=== PATIENT | female | born 1980 | race African-American/Black ===

== ENCOUNTER 2016-07-05 11:12 | Emergency (ER) ==
[2016-07-05 11:28] VITALS: BP 123/56; TEMP 97.4; BMI 19.8
[2016-07-05] MEDS ORDERED: LIDOCAINE 1 % AMP 5 ML (SUTURES) SUBCUT STA (11:28)
[2016-07-05] MEDS ORDERED: BOOSTRIX IM ONE (11:41)
--- NOTE | 2016-07-05 11:41 | ED.PDOC ---
General ED Provider: Dr. ALANIS MORALES JR Chief Complaint: Puncture Wound Stated Complaint: TRYING TO MOVE CLOTHES ON WOODEN RODS AND GOT SPLINTER LEFT HAND 4TH DIGIT.[End]90 minutes 97.4 67 16 98% 123/56 5/10 SPLINTER 4TH DIGIT LEFT HAND 21 weeks per patient last tetanus in the - 2009? Time Seen by Physician: 12:04 Mode of Arrival: Walk-In Information Source: Patient Exam Limitations: No limitations Primary Care Provider: MARILYN PIERSON Nursing and Triage Documentation Reviewed and Agree: No Review of Systems - Review Of Systems Constitutional: Reports: No symptoms Eyes: Reports: No symptoms Ears, Nose, Mouth, Throat: Reports: No symptoms Respiratory: Reports: No symptoms Cardiac: Reports: No symptoms GI: Reports: No symptoms : Reports: No symptoms Musculoskeletal: Reports: No symptoms Skin: Reports: Lesions Neurological: Reports: No symptoms Endocrine: Reports: No symptoms Hematologic/Lymphatic: Reports: No symptoms All Other Systems: Other Past Medical History - Past Medical History Endocrine: Reports: None Cardiovascular: Reports: None Respiratory: Reports: None Hematological: Reports: None Gastrointestinal: Reports: None Genitourinary: Reports: None Neuro/Psych: Reports: None Musculoskeletal: Reports: None Cancer: Reports: None Last Menstrual Period: 2015 Other Pertinent Past Medical History: 3 children delivered as early as 34 weeks "all early" - Surgical History General Surgical History: Reports: Cholecystectomy, Tonsillectomy - Family History Family History: Reports: Unknown - Social History Smoking Status: Former smoker Hx Substance Use: No Alcohol Screening: None Physical Exam - Physical Exam Appearance: Well-appearing, Thin Pain Distress: Mild Neck: Supple Respiratory: Airway patent Skin: Warm, Dry, Normal color (note lesion no nv defecit prior numb after lidocaine) Neurological: Sensation intact, Motor intact, Reflexes intact, Cranial nerves intact, Alert, Oriented Psychiatric: Affect appropriate, Mood appropriate Procedures - Foreign Body Removal Location of Foreign Object: left middle phalanx fourth digit volar surface Foreign Object: splinter wood of clothes luba Depth of Object: 3mm Type of Anesthesia: Local Medication Used: Yes: Lidocaine Prep: Betadine Irrigation: No Skin Incised: Yes Instruments Used: Yes: Forceps Foreign Body Identified and Removed: Yes Critical Care Note - Critical Care Note Total Time (mins): 0 Course - Course Orders, Labs, Meds: Orders Category Date Time Status Diphth,Pertuss(Acell),Tet Vac [Boostrix] MEDS 07/05/16 11:41 Discontinued 0.5 ml IM .ONCE ONE Lidocaine HCl/Pf [Lidocaine 1 % Amp 5 ml (Sutures)] MEDS 07/05/16 11:28 Discontinued 5 ml SUBCUT ONCE STA Medications Discontinued Medications Generic Name Dose Route Start Last Admin Trade Name Moy PRN Reason Stop Dose Admin Diphtheria/Pertussis/Tetanus Vacc 0.5 ml 07/05/16 11:41 Boostrix IM 07/05/16 11:42 .ONCE ONE Lidocaine HCl 5 ml 07/05/16 11:28 Lidocaine 1 % Amp 5 Ml (Sutures) SUBCUT 07/05/16 11:29 ONCE STA Vital Signs: Temp Pulse Resp BP Pulse Ox 07/05/16 11:17 97.4 F L 67 16 123/56 L 98 Departure - Departure Time of Disposition: 12:10 Disposition: HOME SELF-CARE Discharge Problem: Wound Instructions: Soft Tissue Foreign Body (ED) Condition: Good Pt referred to PMD for follow-up: Yes Additional Instructions: clean and dry for two days no bandage when dry change bandage every day and if drains through if bleeds through bandage three times return recheck if red swollen draining or painful begin antibiotic only if symptoms of infection recommend DTAP at 29-30 weeks(see below) Women should get adult tetanus, diphtheria and acellular pertussis vaccine (Tdap ) during each . Ideally, the vaccine should be given between 27 and 36 weeks of in order for pertussis (whooping cough) protection to be passed on to the unborn child[. https://www.vaccines.gov/who_and_when// index.html Prescriptions: Cephalexin [Keflex] 500 mg PO QID #28 capsule Allergies/Adverse Reactions: Allergies No Known Allergies Allergy (Verified 07/05/16 11:16) Home Medications: Ambulatory Orders Cephalexin [Keflex] 500 mg PO QID #28 capsule 07/05/16 Ondansetron HCl [Zofran Tab] 4 mg PO Q8H PRN 07/05/16 [id number]/Iron Fumarate/FA/Dss [ 19 Tablet] 1 each PO DAILY 07/05/16
== END 2016-07-05 12:25 | disposition home or self-care (01) ==
LOC: ED 11:12
DX: S60.455A Superficial foreign body of left ring finger, initial encounter (principal); W45.8XXA Other foreign body or object entering through skin, initial encounter; Z33.1 Pregnant state, incidental
CPT/HCPCS: 99282

== ENCOUNTER 2018-04-02 21:07 | Emergency (ER) ==
[2018-04-02 21:13] VITALS: TEMP 98.6; BMI 20.7
[2018-04-02] MEDS ORDERED: TORADOL IVP STA (21:22)
[2018-04-02] MEDS ORDERED: SODIUM CHLORIDE 1,000 ML IV STA (21:22)
--- NOTE | 2018-04-02 21:27 | ED.PDOC ---
General ED Provider: Dr. MADHAVI HERRERA MD Chief Complaint: Chest Pain Stated Complaint: abdominal pain radiating to right shoulder Time Seen by Physician: 21:20 Mode of Arrival: Walk-In Information Source: Patient Exam Limitations: No limitations Primary Care Provider: SIDNEY MCKEON Nursing and Triage Documentation Reviewed and Agree: Yes Does patient meet sepsis criteria?: No If yes, has appropriate treatment been initiated?: Yes System Inflammatory Response Syndrome: Not Applicable Sepsis Protocol: For patient's 13 years and over: Temp is 96.8 and below OR 101 and greater Pulse >90 BPM Resp >20/minute Acutely Altered Mental Status Are patient's symptoms suggestive of a new infection, such as: -Pneumonia -Skin, Soft Tissue -Endocarditis -UTI -Bone, Joint Infection -Implantable Device -Acute Abdominal Infection -Wound Infection -Meningitis -Blood Stream Catheter Infection -Unknown Review of Systems - Review Of Systems Constitutional: Reports: No symptoms Eyes: Reports: No symptoms Ears, Nose, Mouth, Throat: Reports: No symptoms Respiratory: Reports: No symptoms Cardiac: Reports: Chest pain (radiating to right shoulder) GI: Reports: Abdominal pain (RUQ) : Reports: No symptoms Musculoskeletal: Reports: No symptoms Skin: Reports: No symptoms Neurological: Reports: No symptoms Endocrine: Reports: No symptoms Hematologic/Lymphatic: Reports: No symptoms All Other Systems: Reviewed and Negative Past Medical History - Past Medical History Previously Healthy: Yes Endocrine: Reports: None Cardiovascular: Reports: None Respiratory: Reports: None Hematological: Reports: None Gastrointestinal: Reports: None Genitourinary: Reports: None Neuro/Psych: Reports: None Musculoskeletal: Reports: None Cancer: Reports: None Last Menstrual Period: 03/01/18 Other Pertinent Past Medical History: 3 children delivered as early as 34 weeks "all early" - Surgical History General Surgical History: Reports: Cholecystectomy, Tonsillectomy - Family History Family History: Reports: Unknown - Social History Smoking Status: Current every day smoker, Light tobacco smoker Hx Substance Use: No Alcohol Screening: None - Immunizations Tetanus Shot up to Date: No (unknown) Physical Exam - Physical Exam Appearance: Thin Ill-appearing: Mild Pain Distress: Moderate Eyes: LORE, EOMI, Conjunctiva clear ENT: Ears normal, Nose normal, Oropharynx normal Neck: Supple Respiratory: Airway patent Cardiovascular: RRR GI/: Bowel sounds normal Musculoskeletal: Normal strength, ROM intact, No edema, No calf tenderness Skin: Warm, Dry, Normal color Neurological: Sensation intact, Motor intact, Reflexes intact, Cranial nerves intact, Alert, Oriented Psychiatric: Affect appropriate, Mood appropriate Critical Care Note - Critical Care Note Total Time (mins): 0 Course - Course Hematology/Chemistry: 04/02/18 21:33 04/02/18 21:33 Orders, Labs, Meds: Lab Review 04/02/18 04/02/18 04/02/18 21:30 21:33 21:33 WBC 7.70 RBC 4.71 Hgb 13.1 Hct 39.6 MCV 84.1 MCH 27.8 MCHC 33.1 RDW Coeff of [place] 12.4 Plt Count 226 Immature Gran % (Auto) 0.1 Neut % (Auto) 40.6 Lymph % (Auto) 49.6 [place] % (Auto) 7.1 Eos % (Auto) 2.2 Baso % (Auto) 0.4 Immature Gran # (Auto) 0.0 Neut # (Auto) 3.1 Lymph # (Auto) 3.8 H [place] # (Auto) 0.6 Eos # (Auto) 0.2 Baso # (Auto) 0.0 Sodium 136.4 Potassium 3.80 Chloride 104.6 Carbon Dioxide 25.4 Anion Gap 10.20 BUN 9.9 Creatinine 0.84 Estimated GFR (MDRD) 92.00 BUN/Creatinine Ratio 11.78 Glucose 90.5 Calcium 9.82 Total Bilirubin 0.24 AST 21.3 ALT 12.5 Alkaline Phosphatase 46.8 Troponin I < 0.012 Total Protein 7.39 Albumin 4.41 Globulin 2.98 Albumin/Globulin Ratio 1.47 Amylase 04/02/18 21:33 WBC RBC Hgb Hct MCV MCH MCHC RDW Coeff of [place] Plt Count Immature Gran % (Auto) Neut % (Auto) Lymph % (Auto) [place] % (Auto) Eos % (Auto) Baso % (Auto) Immature Gran # (Auto) Neut # (Auto) Lymph # (Auto) [place] # (Auto) Eos # (Auto) Baso # (Auto) Sodium Potassium Chloride Carbon Dioxide Anion Gap BUN Creatinine Estimated GFR (MDRD) BUN/Creatinine Ratio Glucose Calcium Total Bilirubin AST ALT Alkaline Phosphatase Troponin I Total Protein Albumin Globulin Albumin/Globulin Ratio Amylase 139.9 H Orders Category Date Time Status IV [ED IV/MEDIPORT/POWERPORT] .ONCE EMERGENCY 04/02/18 21:22 Active AMYLASE Stat LAB 04/02/18 21:33 Completed CBC W/ AUTO DIFF Stat LAB 04/02/18 21:33 Completed CMP [COMPREHENSIVE METABOLIC PANEL] Stat LAB 04/02/18 21:33 Completed TROPONIN I Stat LAB 04/02/18 21:30 Completed 0.9 % Sodium Chloride [Saline Flush] MEDS 04/02/18 21:22 Ordered 1 syr IVF PRN PRN Ketorolac Tromethamine [Toradol] MEDS 04/02/18 21:22 Discontinued 60 mg IVP ONCE STA Sodium Chloride 0.9% [Sodium Chloride] 1,000 ml MEDS 04/02/18 21:22 Active IV BOLUS CXR [CHEST, 2 VIEWS PA & LAT] Stat RADS 04/02/18 21:22 Taken Medications Generic Name Dose Route Start Last Admin Trade Name Freq PRN Reason Stop Dose Admin Sodium Chloride 1,000 mls @ 1,000 mls/hr 04/02/18 21:22 04/02/18 21:34 Sodium Chloride IV 04/02/18 22:21 1,000 mls/hr BOLUS STA Administration Sodium Chloride 1 syr 04/02/18 21:22 04/02/18 21:34 Saline Flush IVF 1 syr PRN PRN Administration To flush IV Discontinued Medications Generic Name Dose Route Start Last Admin Trade Name Freq PRN Reason Stop Dose Admin Ketorolac Tromethamine 60 mg 04/02/18 21:22 04/02/18 21:34 Toradol IVP 04/02/18 21:23 60 mg ONCE STA Administration Vital Signs: Temp Pulse Resp BP Pulse Ox 04/02/18 21:08 98.6 F 94 H 20 170/101 H 100 Departure - Departure Time of Disposition: 22:45 Disposition: HOME SELF-CARE Discharge Problem: Anxiety Condition: Good Pt referred to PMD for follow-up: Yes IPMP verified?: No Allergies/Adverse Reactions: Allergies No Known Allergies Allergy (Verified 04/02/18 21:13) Home Medications: Ambulatory Orders Alprazolam 1 mg PO QID 04/02/18 Ziprasidone HCl [Geodon] 80 mg PO DAILY 04/02/18
[2018-04-02] MEDS ORDERED: ATIVAN IVP STA (22:18)
[2018-04-02 22:21] VITALS: BP 118/78
--- NOTE | 2018-04-02 22:24 | DI ---
EXAM: Chest two views HISTORY: Right-sided chest pain FINDINGS: Normal cardiac and mediastinal contours. Normal pulmonary vasculature. Lungs are clear a side from a single granulomatous calcification on the right.. No significant abnormality of the bony thorax. IMPRESSION: Chest radiograph within normal limits.
== END 2018-04-02 22:45 | disposition home or self-care (01) ==
LOC: ED 21:07
DX: F41.9 Anxiety disorder, unspecified (principal); R07.9 Chest pain, unspecified; R10.9 Unspecified abdominal pain; F17.210 Nicotine dependence, cigarettes, uncomplicated
CPT/HCPCS: 36415; 80053; 82150; 84484; 85025; 96361; 96374; 96375; 99284

== ENCOUNTER 2018-06-18 19:24 | Emergency (ER) ==
[2018-06-18 19:33] VITALS: BP 107/68; TEMP 98.7
--- NOTE | 2018-06-18 19:36 | ED.PDOC ---
General ED Provider: Dr. MADHAVI JUAREZ-ER Chief Complaint: Bite Stated Complaint: i have an itchy bite Time Seen by Physician: 19:34 Mode of Arrival: Walk-In Information Source: Patient Exam Limitations: No limitations Primary Care Provider: SIDNEY MCKEON Nursing and Triage Documentation Reviewed and Agree: Yes Does patient meet sepsis criteria?: No If yes, has appropriate treatment been initiated?: Yes System Inflammatory Response Syndrome: Not Applicable Sepsis Protocol: For patient's 13 years and over: Temp is 96.8 and below OR 101 and greater Pulse >90 BPM Resp >20/minute Acutely Altered Mental Status Are patient's symptoms suggestive of a new infection, such as: -Pneumonia -Skin, Soft Tissue -Endocarditis -UTI -Bone, Joint Infection -Implantable Device -Acute Abdominal Infection -Wound Infection -Meningitis -Blood Stream Catheter Infection -Unknown Skin Complaint Exam - Skin/Soft Tissue Complaint/Exam Onset/Duration: 24 hrs Symptoms Are: Still present Timing: Constant Initial Severity: Mild Current Severity: Mild Location: arm Character: Reports: Redness, Swelling, Raised Associated Signs and Symptoms: Reports: Tenderness, Red streaks. Denies: Fever , Chills, Itching, Drainage, Bruising Related History: Reports: Insect bite/sting Recent Exposure to Others w/Similar Symptoms: No Skin Findings: Present: Erythema Joint Tenderness Present: No Differential Diagnoses: Other Review of Systems - Review Of Systems Constitutional: Reports: No symptoms Eyes: Reports: No symptoms Ears, Nose, Mouth, Throat: Reports: No symptoms Respiratory: Reports: No symptoms Cardiac: Reports: No symptoms GI: Reports: No symptoms : Reports: No symptoms Musculoskeletal: Reports: No symptoms Skin: Reports: Rash Neurological: Reports: No symptoms Endocrine: Reports: No symptoms Hematologic/Lymphatic: Reports: No symptoms All Other Systems: Reviewed and Negative Past Medical History - Past Medical History Previously Healthy: Yes Endocrine: Reports: None Cardiovascular: Reports: None Respiratory: Reports: None Hematological: Reports: None Gastrointestinal: Reports: None Genitourinary: Reports: None Neuro/Psych: Reports: None Musculoskeletal: Reports: None Cancer: Reports: None Last Menstrual Period: 3 weeks Other Pertinent Past Medical History: 3 children delivered as early as 34 weeks "all early" - Surgical History General Surgical History: Reports: Cholecystectomy, Tonsillectomy - Family History Family History: Reports: Unknown - Social History Smoking Status: Current every day smoker, Light tobacco smoker Hx Substance Use: No Alcohol Screening: None - Immunizations Tetanus Shot up to Date: Yes Physical Exam - Physical Exam Appearance: Well-appearing Pain Distress: Mild Eyes: LORE, EOMI, Conjunctiva clear ENT: Ears normal, Nose normal, Oropharynx normal Neck: Supple Respiratory: Airway patent, Breath sounds clear, Breath sounds equal, Respirations nonlabored Cardiovascular: RRR GI/: Soft, Nontender, No masses, Bowel sounds normal, No Organomegaly Musculoskeletal: Normal strength, ROM intact, No edema, No calf tenderness Skin: Warm, Dry (noted erythema with bullous lesion) Neurological: Sensation intact, Motor intact, Reflexes intact, Cranial nerves intact, Alert, Oriented Psychiatric: Affect appropriate, Mood appropriate Critical Care Note - Critical Care Note Total Time (mins): 0 Course - Course Vital Signs: Temp Pulse Resp BP Pulse Ox 06/18/18 19:28 98.7 F 85 18 107/68 98 Departure - Departure Time of Disposition: 19:35 Disposition: HOME SELF-CARE Discharge Problem: Insect bite Qualifiers: Encounter type: initial encounter Site of insect bite: forearm Laterality: left Qualified Code(s): S50.862A - Insect bite (nonvenomous) of left forearm, initial encounter Instructions: Insect Bite or Sting (ED) Condition: Good Pt referred to PMD for follow-up: Yes IPMP verified?: No Additional Instructions: medrol dose pack---keflex 500mg bid x 7 days ----zyrtec 10mg #30===f/u with cs Allergies/Adverse Reactions: Allergies No Known Allergies Allergy (Verified 04/02/18 21:13) Home Medications: Ambulatory Orders Alprazolam 1 mg PO QID 04/02/18 Ziprasidone HCl [Geodon] 80 mg PO DAILY 04/02/18 Disposition Discussed With: Patient
== END 2018-06-18 19:40 | disposition home or self-care (01) ==
LOC: ED 19:24
DX: S50.862A Insect bite (nonvenomous) of left forearm, initial encounter (principal); W57.XXXA Bitten or stung by nonvenomous insect and other nonvenomous arthropods, initial encounter; F17.210 Nicotine dependence, cigarettes, uncomplicated
CPT/HCPCS: 99282

== ENCOUNTER 2018-08-12 18:55 | Emergency (ER) ==
[2018-08-12 19:03] VITALS: BP 122/75; TEMP 98.3; BMI 20.5
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
[2018-08-12] MEDS ORDERED: TORADOL IM STA (20:59)
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
--- NOTE | 2018-08-12 21:46 | CT ---
Exam: CT of the chest without contrast History: Post right chest pain Technique: [address] of the chest without intravascular contrast FINDINGS: The lung windows show no significant pulmonary parenchymal abnormality. There is a granul omatous calcification in the right lower lobe. Normal heart, great vessels and pericardium by noncon trast CT. No mediastinal hematoma. No acute findings of the chest wall soft tissues or bony thorax. No acute findings of the upper abdomen. Impression: 1. No acute findings of the chest
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
== END 2018-08-12 22:15 | disposition home or self-care (01) ==
LOC: ED 18:55
DX: G44.209 Tension-type headache, unspecified, not intractable (principal); S16.1XXA Strain of muscle, fascia and tendon at neck level, initial encounter; V89.2XXA Person injured in unspecified motor-vehicle accident, traffic, initial encounter; F17.210 Nicotine dependence, cigarettes, uncomplicated
CPT/HCPCS: 96372; 99282